=== PATIENT | female | born 1955 | race Caucasian/White ===

== ENCOUNTER 2025-01-23 06:26 | Day surgery (SDC) | payer MEDICARE, SELFPAY ==
[2025-01-18 13:36] VITALS: BMI 33.1
[2025-01-23 06:53] VITALS: BP 163/75; PULSE 72; RESP 16; TEMP 36.7; O2SAT 99
[2025-01-23 07:03] VITALS: BMI 32.9
[2025-01-23] MEDS: Lactated Ringers 1,000 ML 100 ML IVCONT (07:11)
--- NOTE | 2025-01-23 07:18 | P.CONAN_ITS ---
FORM[facility]LY [facility] Past Medical History Medical History Urinary, incontinence, stress female Depression Elevated cholesterol HTN (hypertension) Functional capacity: independent ambulation Patient : No Family History Family history of problems with anesthesia: No Surgical History Surgical History (Updated 01/18/25 @ 13:31 by Seema Loya RN) H/O colonoscopy History of Problems with Anesthesia: No Social History Social History Patient Tobacco Use Status: Never used Tobacco Advance Directives: No Advance Directives Information Provided: Yes Meds Allergies Allergy/AdvReac Type Severity Reaction Status Date / Time No Known Allergies Allergy Verified 01/18/25 13:31 Active Medications: Current Medications Lactated Ringer's (Lr) 1,000 mls @ 100 mls/hr IVCONT .Q10H CAROLINE Last Admin: 01/23/25 07:11 Dose: 100 mls/hr Lactated Ringer's (Lr) 1,000 mls @ 100 mls/hr IVCONT .Q10H [facility] Home Medications ?Medication ?Instructions ?Recorded ?Confirmed ?Last Taken ?Type aspirin 81 mg tablet,delayed 81 mg PO DAILY 01/18/25 01/18/25 Unknown History release calcium 600 mg (as 1 cap PO BID 01/18/25 01/18/25 Unknown History carbonate)-vitamin D3 5 mcg (200 unit) capsule (Calcium 600 + D(3)) hydrochlorothiazide 12.5 mg tablet 12.5 mg PO DAILY 01/18/25 01/18/25 Unknown History losartan 50 mg-hydrochlorothiazide 1 tab PO DAILY 01/18/25 01/18/25 Unknown History 12.5 mg tablet multivitamin 1 tab PO DAILY 01/18/25 01/18/25 Unknown History simvastatin 40 mg tablet 40 mg PO BEDTIME 01/18/25 01/18/25 Unknown History trospium 60 mg capsule,extended 60 mg PO DAILY 01/18/25 01/18/25 Unknown History release 24 hr venlafaxine 75 mg capsule,extended 75 mg PO BID 01/18/25 01/18/25 Unknown History release 24 hr Exam Height,Weight and Vital Signs: Height 5 ft 5 in Weight 89.6 kg Last Vital Signs Temp 98.1 F 01/23/25 06:53 Pulse 72 01/23/25 06:53 Resp 16 01/23/25 06:53 BP 163/75 H 01/23/25 06:53 Pulse Ox 99 01/23/25 06:53 O2 Del Method Room Air 01/23/25 06:53 Airway Mallampati Class: II TM Dist: >3cm Neck ROM: Full Heart: rrr Lungs: cta Assessment and Plan Assessment Anesthesia Assessment: Anesthesia Plan Discussed and Chart Reviewed Final Anesthetic Review Family History of Problems with Anesthesia: No History of Problems with Anesthesia: No NPO: Yes ASA Class: II Final Preanesthetic Review: No Changes in Pt Med Stat, Meds/Allgs Chart Reviewed, Consent Obtained/Reviewed and Anes Risks/Benef Reviewed Patient Risk: Low Procedure Risk: Low Anesthetic Plan Anesthetic Plan: MAC: Disposition: Standard PACU
--- NOTE | 2025-01-23 07:32 | P.HPSUR_ITS ---
Pre-Procedural Eval Section A - 24 Hr Update-Section A only Date of Service: 01/23/25 Section B - Complete if H&P > 30 days Chief Complaint: Encounter for screening for malignant neoplasm of Details of Present Illness: see H&P no changes Relevant Family History (Specify if Yes): No Relevant Social History: None Present Medications: see Short Stay Collaborative assessment Medical History: No relevant PMH History of Previous Operations: No relevant previous surgery Allergies: Allergies Allergy/AdvReac Type Severity Reaction Status Date / Time No Known Allergies Allergy Verified 01/18/25 13:31 Review of Systems Sugical H&P ROS: Negative: Constitution, Cardiovascular, Respiratory, Neurological, Psychiatric, Hem-Onc, Allergic/Immunologic, Gastrointestinal, Genitourinary, Musculoskeletal, Integumentary, Endocrine and Eyes/Ears/No se/Throat Exam Surgical H&P Exam: Normal: HEENT, Normal: Heart, Normal: Lungs, Normal: Extremities, Normal: Abdomen, Normal: Skin and Normal: Neurological Plan Diagnosis/Plan: Unchanged I have reviewed the history and physical and performed a pertinent physical examination on my patient. No changes have occurred unless specified. Time Spent With Patient Time: Total time managing care of this patient today ____ minutes.
[2025-01-23 08:23] VITALS: BP 129/68; PULSE 77; RESP 12; TEMP 36.8; O2SAT 99
[2025-01-23 08:38] VITALS: BP 150/75; PULSE 71; RESP 16; TEMP 36.4; O2SAT 96
--- NOTE | 2025-01-23 08:57 | OP_ITS ---
DATE OF SERVICE: 01/23/2025 SURGEON: Darian Fontenot MD INDICATIONS: Colon cancer screening and prior history of adenomatous colon polyps PREOPERATIVE DIAGNOSIS: POSTOPERATIVE DIAGNOSIS: PROCEDURE PERFORMED: Colonoscopy to the right colon with biopsy. ESTIMATED BLOOD LOSS: COMPLICATIONS: ANESTHESIA: Monitored anesthesia care. ASSISTANTS: SPECIMENS: DESCRIPTION OF PROCEDURE: A history and physical was performed. The risks and benefits of the procedure were explained to the patient. Informed consent was obtained. The patient was placed in the left lateral decubitus position. A digital rectal exam was performed and was found to be normal. The Olympus pediatric video colonoscope was introduced into the rectum and advanced to the right colon. The scope could not be advanced to the cecum due to looping in the sigmoid, despite repositioning the patient, and application of abdominal wall pressure. It was estimated that 90% of the colon was examined. The cecum was visualized indirectly through the right colon, but the scope could not be advanced below the ileocecal valve. Examination was performed. The scope was removed. She tolerated the procedure well and was taken to recovery in stable condition. FINDINGS: The terminal ileum was not examined. The visualized colonic mucosa was normal. The quality of the prep was good. Two polyps were identified and removed with the biopsy forceps. Both measured less than 10 mm. The 1st was located in the right colon and the 2nd was located at the hepatic flexure. Retroflexed examination was normal. IMPRESSION: Colon polyps. RECOMMENDATION: 1. Follow up the biopsy results. 2. She will need short-term followup with repeat colonoscopy in approximately 6 to 12 months because of the incomplete examination. Another option would be a CT colonography or barium enema. We will discuss this after she is discharged and biopsy reports are back. MD YAYA Woodard/SCOTT / [id number]
== END 2025-01-23 09:36 | disposition home or self-care (01) ==
PROVIDERS: PCP Internal Medicine; Visit Provider Internal Medicine Gastroenterology
PROC: 0DJD8ZZ Inspection of Lower Intestinal Tract, Via Natural or Artificial Opening Endoscopic (ICD-10-PCS; CPT 45378; principal; 2025-01-23 07:30)
DX: Z12.11 Encounter for screening for malignant neoplasm of colon (principal); Z86.0101 Personal history of adenomatous and serrated colon polyps; D12.2 Benign neoplasm of ascending colon; D12.3 Benign neoplasm of transverse colon; K56.2 Volvulus; I10 Essential (primary) hypertension; E78.00 Pure hypercholesterolemia, unspecified; N39.3 Stress incontinence (female) (male); F32.A Depression, unspecified; Z79.82 Long term (current) use of aspirin; Z79.899 Other long term (current) drug therapy
CPT/HCPCS: 45380; 88305; J2003; J2704